=== PATIENT | male | born 1945 | race Caucasian/White ===

== ENCOUNTER 2017-01-19 14:09 | Outpatient (CLI) ==
--- NOTE | 2017-01-19 14:59 | DI ---
EXAM: Chest, two views, 01/19/2017 HISTORY: Cough COMPARISON: None. FINDINGS / IMPRESSION: The heart size appears within normal limits. Patchy opacity within the lateral aspect of the right upper lobe likely represents pneumonia. Other etiologies not excluded. Follow-up recommended to document resolution following appropriate medical management. Blunting of the lateral and posterior costophrenic angles likely due to small bilateral pleural effus ions. No pneumothorax.
== END 2017-01-19 14:10 | disposition home or self-care (01) ==
LOC: RAD 14:09
PROVIDERS: ATTEND Family Medicine
DX: R05 Cough (principal)